=== PATIENT | female | born 1955 | race African-American/Black ===

== ENCOUNTER 2017-01-04 05:16 | Day surgery (SDC) | payer OTHER ==
[2016-12-04 10:48] VITALS: BMI 31.2
[2017-01-01 15:22] VITALS: BMI 29.5
[~2017-01-04] VITALS: Ht 162.6 cm; Wt 78.9 kg
[2017-01-04 06:45] VITALS: Ht 162.6 cm; Wt 78.9 kg
[2017-01-04 06:53] VITALS: BP 106/65; PULSE 58; RESP 18
[2017-01-04] MEDS ORDERED: SERT-165 PO (07:03)
[2017-01-04] MEDS ORDERED: HYDR-2086 PO (07:03)
[2017-01-04] MEDS ORDERED: BUPR150T6 PO (07:03)
[2017-01-04] MEDS ORDERED: DICL75TA2 PO (07:03)
[2017-01-04] MEDS ORDERED: LEVO150T67 PO (07:03)
[2017-01-04] MEDS ORDERED: RISP2TAB3 PO (07:03)
[2017-01-04] MEDS ORDERED: ALBU18HF INHALATION (07:03)
[2017-01-04] MEDS ORDERED: METH500T8 PO (07:03)
[2017-01-04] MEDS ORDERED: TRAZ50TA18 PO (07:03)
[2017-01-04] MEDS ORDERED: ADV25050 INHALATION (07:03)
[2017-01-04] MEDS ORDERED: BUPIVACAINE 0.25% (MPF) 30 ML INJ ONE (07:21)
== END 2017-01-04 08:21 | disposition home or self-care (01) ==
LOC: SDS 05:16
PROVIDERS: ATTEND Orthopaedic Surgery Hand Surgery
DX: G56.02 Carpal tunnel syndrome, left upper limb (principal); Z53.9 Procedure and treatment not carried out, unspecified reason